=== PATIENT | male | born 1940 | race Caucasian/White ===

== ENCOUNTER 2016-11-01 11:10 | Inpatient (IN) ==
[2016-11-01] MEDS ORDERED: SODIUM CHLORIDE 0.9% 500 ML IV STA (11:53)
--- NOTE | 2016-11-01 11:58 | Emergency Department Note ---
Arrival - Arrival Chief Complaint: Weakness Stated Complaint: fell no use on right side at times,confused ED Nursing Triage Note: fell yesterday. was seen here last week for falls and increased weakness on right side. reports no better since hes been home and unable to use right side and has fallen three more times since last visit. told by dr osei to bring back for re evaluation. Mode of Arrival: Wheelchair Limitations: No Limitations Source: Patient, Significant other, Family, RN Notes Reviewed Time Seen by Provider: 11/01/16 11:46 - History of Present Illness HPI Narrative: Patient is a 76-year-old white male well known to me with a history of Parkinson 's disease followed by Dr. Osei. The patient had multiple falls. He was seen in the emergency department 2 days ago due to falls. The patient was given IV fluids and underwent significant evaluation for other causes of fall or medical weakness and all of these were negative. I discussed with the regarding her ability to care for the patient at home and she wanted to take him home. The patient has since fallen multiple times over the last 48 hours and returns today at the behest of Dr. Osei. Dr. sOei is her primary care provider. The patient is also followed by Dr. Candelario for his Parkinson's. Onset (ago): month(s) Consistency: constant Severity: moderate Allergies/Adverse Reactions: Allergies Allergy/AdvReac Type Severity Reaction Status Date / Time No Known Allergies Allergy Verified 05/21/15 09:21 Home Medications: Home Medications Medication Instructions Recorded Confirmed Type Aspirin [Ecotrin] 325 mg PO BEDTIME 05/20/15 11/01/16 History Dutasteride [Avodart] 0.5 mg PO BEDTIME 05/20/15 11/01/16 History Multivitamin [Multivitamins] 1 tablet PO DAILY 05/20/15 11/01/16 History [place]-3S/Dha/Epa/Fish Oil [Fish 1 tablet PO DAILY 05/20/15 11/01/16 History Oil 1,200 mg Softgel] Alfuzosin HCl [Alfuzosin HCl ER] 10 mg PO BEDTIME 03/15/16 11/01/16 History Carbidopa/Levodopa [Carbidopa-Levo 1 each PO TID 03/15/16 11/01/16 History ER 50-200 Tab] Sennosides [Senna Laxative] 1 tablet PO QID 03/15/16 11/01/16 History Vit C/Vit E AC/Lut/Copper/Zinc 1 each PO BID 03/15/16 11/01/16 History [Preservision Lutein Softgel] Cyanocobalamin (Vitamin B-12) 1,000 mcg PO DAILY 10/30/16 11/01/16 History [Vitamin B-12] Memantine [Namenda] 10 mg PO BID 10/30/16 11/01/16 History Midodrine HCl 5 mg PO TID 10/30/16 11/01/16 History Donepezil [Aricept] 5 mg PO QPM 11/01/16 11/01/16 History Review of System - Review of System 12 point system: reviewed and no additional remarkable complaints except as stated - Review of System Constitutional: Absent: chills, fever Cardiovascular: Absent: chest pain Gastrointestinal: Absent: abdominal pain, nausea, vomiting Skin: Present: lesions Neurological: Present: weakness, confusion, abnormal gait. Absent: headache Medical,Surgical,& Family Hx - Medical History Cardio: History of: Cardiovascular Problems (fluctuating blood pressure) Neurology: History of: Dementia, Parkinson's Disease HEENT: History of: Eye Problem (CATARACTS to both eyes), HEENT Problems (MEMORY PROBLEMS) Rheumatology: History of;: Rheumatoid Arthritis Genitourinary: History of: Bladder Problem, Kidney Stones, Prostate Problems ( BPH) Gastrointestinal: History of: GI Problems (hernia removal 3 weeks ag) Musculoskeletal: History of: Amputation Other: History of: Cancer (skin) - Surgical History Cardiac Surgeries: Patient Denies: Cardiac Catheterization Neurologic Surgeries: Patient denies: Neurologic Surgery Abdominal Surgeries: Surgical HX of: Abdominal Surgery, Hernia Repair ( INCARCERATED RIH) Reproductive Surgeries: Patient denies;: Genitourinary Surgery Orthopedic Surgeries: Surgical HX of;: Orthopedic Surgery (KNEE SCOPE), Total Hip Replacement (RIGHT HIP) - Family History Family History: Reports;: Family Cancer (MOM (lung)), Family Heart Disease (DAD) , Family Hypertension (BROTHER) - Social History Smoking Status: Never smoker Exam Vital Signs: Vital Signs Temperature 97.1 F L 11/01/16 11:22 Pulse Rate 66 11/01/16 11:22 Respiratory Rate 18 11/01/16 11:22 Blood Pressure 125/82 11/01/16 11:22 O2 Sat by Pulse Oximetry 99 11/01/16 11:22 GENERAL: This is a white male chronically ill appearing in no apparent distress. VITAL SIGNS: Reviewed HEENT: Abrasion of the right frontal area. Pupils are equal round react to light. Extraocular movements are intact. Oropharynx is benign with moist mucous membranes. NECK: Neck is soft and supple without tenderness. There are no masses. There is no lymphadenopathy. LUNGS: Lungs are clear to auscultation. Chest rises symmetrically. There is no chest wall tenderness. CV: Heart is regular rate and rhythm without murmurs rubs or gallops. ABDOMEN: Abdomen is soft, nontender to palpation. There are no abdominal abnormal masses palpated. There is no organomegaly. Bowel sounds are present and active. SKIN: Skin is warm and dry. Ecchymosis of the right knee EXTREMITIES: Patient has full range of motion without tenderness. There is no pedal edema. NEUROLOGIC: Awake, alert, mass face ease. Patient is oriented to person and situation. Cranial nerves II through XII are grossly intact. Motor is 4 over 5 in all extremities bilaterally. Course - Consultations Consultation #1: Discussed with Dr. Osei. Patient will be admitted to his service. Initial orders written for him. He will assume patient's care upon arrival to the [facility]. Results - Labs Lab Results: I have reviewed the patients labs - Diagnostic Findings Procedure: CT: image reviewed by me (CT head:) Disposition Clinical Impression: Parkinsons disease, Multiple falls, Parkinson's induced dementia Case discussed with: patient, patient's family Disposition: Still a Patient Condition: Stable Time of Disposition: 12:00
[2016-11-01 12:10] LABS: Basophils % 0.3 % (0.0-0.8); Eosinophils # 0.1 10*3/uL (0.0-0.87); Eosinophils % 0.8 % (0.00-10.9); Hematocrit 38.3 VOL% (42.0-52.0); Hemoglobin 13.1 GM/DL (14.0-18.0); Immature Granulocytes % 0.5 %; Immature Granulocytes Absolute 0.04 #; Lymphocytes # 1.3 10*3/uL (1.4-4.0); Lymphocytes % 16.9 % (21.2-54.2); Mean Corpuscular HGB Conc 34.2 GM/DL (32-36); Mean Corpuscular Hemoglobin 31 PG (27-34); Mean Corpuscular Volume 91.4 FL (87-102); Monocytes # 0.5 10*3/uL (0.11-0.8); Monocytes % 6.9 % (1.7-12.7); Neutrophils # 5.7 10*3/uL (1.4-7.4); Neutrophils % 74.6 % (38.7-73.9); Platelet Count 150 T/CUMM (130-400); Red Blood Count 4.19 MC/CUMM (3.8-5.5); Red Cell Distribution Width 12.8 % (9.3-17.3); White Blood Count 7.6 T/CUMM (4-12)
--- NOTE | 2016-11-01 12:37 | CT Report ---
History: Trauma. Fall Date: 11/01/2016 Study: CT head without contrast Comparison exam: October 30, [address] sections were obtained through the head without IV contrast. This CT exam was performed using one or more the following dose reduction techniques: Automated exposure control, adjustment of the MA and/or KV according to patient size, or use of iterative reconstruction technique. The ventricles are midline in position without evidence of hydrocephalus. There is mild diffuse cerebral atrophy. There is no mass or parenchymal hemorrhage. There is no gross CT evidence of acute cortical stroke. Small rounded low densities compatible with chronic areas of tiny lacunar infarction are noted in the left thalamus and left putamen, similar to the previous study. There is a mild to moderate amount of ill-defined low density in the periventricular white matter without mass effect compatible with changes of small vessel disease. There is no acute abnormality of the calvarium. The partially visualized paranasal sinuses and mastoid air cells are clear. There is mild distal carotid artery calcification bilaterally. Impression: No acute intracranial process. Chronic ischemic changes. Cerebral atrophy as before PROCEDURE INTERPRETED AT [facility] DEPARTMENT OF RADIOLOGY Final Report Signed by: Dr. Yumi Garcia
[2016-11-01 12:40] LABS: PT Patient Result 10.9 SECS; Partial Thromboplastin Time 28.7 SECS (0-40)
[2016-11-01 12:41] LABS: Albumin 3.8 G/DL (3.4-5.0); Bilirubin,Total 0.5 MG/DL (0.2-1.0); Calcium 9.1 MG/DL (8.5-10.1); Osmolality,Calculated 286.1 MOS/KG (273-304); Potassium 3.9 MMOL/L (3.5-5.1); Total Protein 6.8 G/DL (6.4-8.3)
--- NOTE | 2016-11-01 12:46 | XRay Report ---
History: Fall Date: 11/01/2016 Study: Chest x-ray AP portable Comparison exam: 03/18/2016 The cardiac silhouette is mildly prominent. There is no mediastinal mass. There is mild tortuosity and ectasia of the thoracic aorta. The pulmonary vasculature is not engorged. There is no pneumothorax or gross pleural effusion. There is some bronchovascular crowding in the lung bases. There is no definite acute osseous abnormality. There is mild thoracic spondylosis and suspected osteopenia. Impression: Shallow inspiration. Mild cardiomegaly. No definite acute process PROCEDURE INTERPRETED AT [facility] DEPARTMENT OF RADIOLOGY Final Report Signed by: Dr. Yumi Garcia
[2016-11-01 13:03] LABS: Apearance,Urine CLEAR (Clear); Bacteria,Urine Occasional /HPF (Few); Bilirubin,Urine Negative (Negative); Blood, Urine Negative (Negative); Glucose,Urine (UA) Negative (Negative); Ketones,Urine 5 mg/dL (Negative); Mucus,Urine Occasional /LPF (Occasional); Nitrite,Urine Negative (Negative); Protein,Urine Negative; RBC,Urine <1 /HPF (0-4); Urine Color Yellow (Yellow); Urine Specific Gravity 1.016 (1.001-1.035); Urine Urobilinogen < 2.0 EU/DL (0.2-1.0); WBC,Urine 2 /HPF (0-6)
[2016-11-01] MEDS ORDERED: ONDANSETRON 4 MG/2 ML VIAL IV PRN (13:37)
[2016-11-01] MEDS ORDERED: ACETAMINOPHEN 325 MG TABLET PO PRN (13:37)
--- NOTE | 2016-11-01 14:45 | Neurology Consult Note ---
History of Present Illness History of present illness: Mr. Browne is a 76 year old right-handed white gentleman with past medical history significant for Parkinson disease admitted the hospital with frequent falls. Patient's Parkinson's has gotten worse and quite decompensated. He is having what sounds like frequent freezing spells. Frequently he has episodes where he would just not be able to walk at all. He will drag his leg and then fall eventually. No major injuries reported. He has been taking Sinemet at home but somehow it was not continued here. Son reported that he has fallen several times in the last couple of weeks. No speech difficulties or swallowing problems reported. Is still able to perform ADLs to a certain extent however requiring more and more help. Home Medications Medication Instructions Recorded Confirmed Type Aspirin [Ecotrin] 325 mg PO BEDTIME 05/20/15 11/01/16 History Dutasteride [Avodart] 0.5 mg PO BEDTIME 05/20/15 11/01/16 History Multivitamin [Multivitamins] 1 tablet PO DAILY 05/20/15 11/01/16 History [place]-3S/Dha/Epa/Fish Oil [Fish 1 tablet PO DAILY 05/20/15 11/01/16 History Oil 1,200 mg Softgel] Alfuzosin HCl [Alfuzosin HCl ER] 10 mg PO BEDTIME 03/15/16 11/01/16 History Carbidopa/Levodopa [Carbidopa-Levo 1 each PO TID 03/15/16 11/01/16 History ER 50-200 Tab] Sennosides [Senna Laxative] 1 tablet PO QID 03/15/16 11/01/16 History Vit C/Vit E AC/Lut/Copper/Zinc 1 each PO BID 03/15/16 11/01/16 History [Preservision Lutein Softgel] Cyanocobalamin (Vitamin B-12) 1,000 mcg PO DAILY 10/30/16 11/01/16 History [Vitamin B-12] Memantine [Namenda] 10 mg PO BID 10/30/16 11/01/16 History Midodrine HCl 5 mg PO TID 10/30/16 11/01/16 History Donepezil [Aricept] 5 mg PO QPM 11/01/16 11/01/16 History Allergies Allergy/AdvReac Type Severity Reaction Status Date / Time No Known Allergies Allergy Verified 01/06/16 09:21 12 point system: reviewed and no additional remarkable complaints except as stated Medical,Surgical,& Family Hx - Medical History Cardio: History of: Hypertension, Cardiovascular Problems (fluctuating blood pressure) Neurology: History of: Dementia, Parkinson's Disease HEENT: History of: Eye Problem (CATARACTS to both eyes), HEENT Problems (MEMORY PROBLEMS) Rheumatology: History of;: Rheumatoid Arthritis Genitourinary: History of: Bladder Problem, Kidney Stones, Prostate Problems ( BPH) Gastrointestinal: History of: GI Problems (hernia removal 3 weeks ag) Musculoskeletal: History of: Amputation Other: History of: Cancer (skin) - Surgical History Cardiac Surgeries: Patient Denies: Cardiac Catheterization Neurologic Surgeries: Patient denies: Neurologic Surgery Abdominal Surgeries: Surgical HX of: Abdominal Surgery, Hernia Repair ( INCARCERATED RIH) Reproductive Surgeries: Patient denies;: Genitourinary Surgery Orthopedic Surgeries: Surgical HX of;: Orthopedic Surgery (KNEE SCOPE), Total Hip Replacement (RIGHT HIP) - Family History Family History: Reports;: Family Cancer (MOM (lung)), Family Heart Disease (DAD) , Family Hypertension (BROTHER) - Social History Smoking Status: Never smoker Frequency of Alcohol Use: None Type of Drug Use: None Exam - Constitutional Vitals: Period Temp Pulse Resp BP Sys/Wilkerson Pulse Ox Last 24 Hr 97.1 F-98 F 58-75 13-18 115-192/74-112 97-100 Exam: GENERAL: Patient is in no acute distress. NECK: Neck is supple. There is no JVD. No carotid bruits present. No thyroid masses. CVS: First and second heart sounds are normal. There is no S3 present. Regular rate and rhythm. RESPIRATORY: Lungs are clear to auscultation without any rales or rhonchi. ABDOMEN: Soft and non-tender. Bowel sounds are present. There is no hepatosplenomegaly. EXT: There is no palpable edema. Peripheral pulses are present. Skin: No rashes Central Nervous system: General: Alert, awake Speech: Non-fluent Comprehension: Fair Facial expressions: Masklike Cranial Nerves: CN1/Olfactory: Normal CN II/ Optic: Normal, Visual Duron unreliable CN III, and : SHON & EOMI CN V: Normal & intact CN VII: face is symmetric CNVIII: Normal CN XI/X/XI/XII: Intact and Normal Motor: Bilateral cogwheel rigidity and bradykinesia Strength is symmetrical Sensory: Unreliable Reflexes: 1+ and symmetrical Cerebellar function: Marked dysmetric finger to nose and heel to napier testing bilaterally. Toes: Equivocal Gait: Not tested at this time Results - Labs CBC & BMP: 11/01/16 12:02 11/01/16 12:02 Assessment and Plan (1) Parkinsons disease Status: Acute Assessment and plan: Change Sinemet CR to 50/200 mg 1 tablet 4 times Consult TMR Current Visit: No (2) Dementia Status: Acute Assessment and plan: Continue Aricept and Namenda at the same dose Current Visit: No Qualifiers: Dementia type: Parkinson's disease (3) Orthostatic hypotension Status: Acute Assessment and plan: Continue midodrine Check orthostatic vitals q12 Current Visit: No
[2016-11-01] MEDS ORDERED: CARBIDOPA/LEVODOPA CR 50-200 MG TABLET PO SCH (15:00)
--- NOTE | 2016-11-01 16:03 | Internal Med History&Physical ---
Assessment and Plan (1) Multiple falls Status: Acute Assessment and plan: 76-year-old male admitted to acute care * Multiple falls. Probably multifactorial secondary to decompensating Parkinson 's disease and or orthostatic hypotension. Patient will be evaluated for any metabolic causes. Check MRI brain * Decompensated Parkinson's disease. Will consult Dr. Candelario. * Orthostatic hypotension secondary to autonomic dysfunction. Patient is on midodrine * BPH. Continue current treatment * Dementia. Medications were recently changed because of high cost of Exelon patch * Discussed in detail with patient's son who is present. He will benefit from either rehab or swing bed placement Current Visit: Yes (2) Parkinsons disease Status: Acute Current Visit: Yes (3) Dementia Status: Acute Current Visit: No Qualifiers: Dementia type: Parkinson's disease (4) Dysautonomia orthostatic hypotension syndrome Status: Acute Current Visit: No (5) Hypertension Status: Acute Current Visit: No History of Present Illness Chief complaint: Multiple falls and weakness History of present illness: Mr. Browne is a 76 year old male with history of multiple medical problems including Parkinson's disease, advanced dementia, orthostatic hypotension, BPH and multiple falls. He was brought to the emergency room by family because of multiple falls and increased weakness on the right side. Patient was in emergency room a few days ago and was evaluated with CT brain and sent home. He was recommended an admission but the family decided to take him home. He was recently taken off Exelon patch because of the high cost and switch to Aricept. Patient denies any complaints. No chest pain or shortness of breath. No nausea vomiting or diarrhea. No fever or chills. Patient is supposed to use a walker and he uses it when he remembers about it Home Medications Medication Instructions Recorded Confirmed Type Aspirin [Ecotrin] 325 mg PO BEDTIME 05/20/15 11/01/16 History Dutasteride [Avodart] 0.5 mg PO BEDTIME 05/20/15 11/01/16 History Multivitamin [Multivitamins] 1 tablet PO DAILY 05/20/15 11/01/16 History [place]-3S/Dha/Epa/Fish Oil [Fish 1 tablet PO DAILY 05/20/15 11/01/16 History Oil 1,200 mg Softgel] Alfuzosin HCl [Alfuzosin HCl ER] 10 mg PO BEDTIME 03/15/16 11/01/16 History Carbidopa/Levodopa [Carbidopa-Levo 1 each PO TID 03/15/16 11/01/16 History ER 50-200 Tab] Sennosides [Senna Laxative] 1 tablet PO QID 03/15/16 11/01/16 History Vit C/Vit E AC/Lut/Copper/Zinc 1 each PO BID 03/15/16 11/01/16 History [Preservision Lutein Softgel] Cyanocobalamin (Vitamin B-12) 1,000 mcg PO DAILY 10/30/16 11/01/16 History [Vitamin B-12] Memantine [Namenda] 10 mg PO BID 10/30/16 11/01/16 History Midodrine HCl 5 mg PO TID 10/30/16 11/01/16 History Donepezil [Aricept] 5 mg PO QPM 11/01/16 11/01/16 History Allergies Allergy/AdvReac Type Severity Reaction Status Date / Time No Known Allergies Allergy Verified 05/21/15 09:21 Medical,Surgical,& Family Hx - Medical History Cardio: History of: Hypertension, Cardiovascular Problems (Severe orthostatic hypotension) Neurology: History of: Dementia, Parkinson's Disease HEENT: History of: Eye Problem (CATARACTS to both eyes), HEENT Problems (MEMORY PROBLEMS) Genitourinary: History of: Bladder Problem, Kidney Stones, Prostate Problems ( BPH) Gastrointestinal: History of: GI Problems (hernia removal 3 weeks ag) Musculoskeletal: History of: Amputation Other: History of: Cancer (skin) - Surgical History Cardiac Surgeries: Patient Denies: Cardiac Catheterization Neurologic Surgeries: Patient denies: Neurologic Surgery Abdominal Surgeries: Surgical HX of: Abdominal Surgery, Hernia Repair ( INCARCERATED RIH) Reproductive Surgeries: Patient denies;: Genitourinary Surgery Orthopedic Surgeries: Surgical HX of;: Orthopedic Surgery (KNEE SCOPE), Total Hip Replacement (RIGHT HIP) - Family History Family History: Reports;: Family Cancer (MOM (lung)), Family Heart Disease (DAD) , Family Hypertension (BROTHER) - Social History Smoking Status: Never smoker Frequency of Alcohol Use: None Type of Drug Use: None Marital Status: Lives With:: Spouse Functional capacity: uses cane/walker ROS unobtainable: due to mental status Exam - Constitutional Vitals: Period Temp Pulse Resp BP Sys/Wilkerson Pulse Ox Last 24 Hr 97.1 F-98 F 58-75 13-18 115-192/74-112 97-100 Exam: Examination: GENERAL: NAD. Masklike face HEENT: PERRLA. EOMI. Mucous membranes are moist. NECK: Neck is supple. No JVD. No carotid bruit. No thyromegaly. CVS: Regular rate and rhythm. S1 and S2 are normal. Systolic ejection murmur at left upper sternal border RESPIRATORY: Lungs are clear. No rales or rhonchi. ABDOMEN: Soft and nontender. Bowel sounds are present. No hepatosplenomegaly. EXT: No edema. Peripheral pulses are present. 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 Cranial nerves II through XII are grossly intact. Motor strength is 4/5. Bilateral cog wheel rigidity SKIN: Warm and dry. There is abrasion present in the right frontal area. Ecchymosis of the right knee MSK: No obvious deformity. Results - Labs CBC & BMP: 11/01/16 12:02 11/01/16 12:02 Lab Results: I have reviewed the past 24 hour labs Quality Measures - Stroke Symptom Onset Unknown: No
[2016-11-01] MEDS: SENNA 8.6 MG TABLET PO SCH ×2 (17:25→20:54)
[2016-11-01] MEDS: CARBIDOPA/LEVODOPA CR 50-200 MG TABLET PO SCH ×2 (17:25→20:55)
[2016-11-01] MEDS: MIDODRINE 5 MG TABLET PO SCH ×2 (17:38→20:54)
[2016-11-01] MEDS: SODIUM CHLORIDE 0.9% 1,000 ML IV SCH ×2 (19:42→20:47)
[2016-11-01] MEDS: ASPIRIN EC 325 MG TABLET PO SCH (20:53)
[2016-11-01] MEDS: MULTIVITAMIN (OCUVITE) TABLET PO SCH (20:53)
[2016-11-01] MEDS: DUTASTERIDE 0.5 MG CAPSULE PO SCH (20:53)
[2016-11-01] MEDS: DONEPEZIL 5 MG TABLET PO SCH (20:54)
[2016-11-01] MEDS: ALFUZOSIN 10 MG TABLET PO SCH (20:55)
[2016-11-01] MEDS: MEMANTINE 10 MG TABLET PO SCH (20:55)
[2016-11-01] MEDS: DOCUSATE SODIUM 100 MG CAPSULE PO SCH (21:07)
[2016-11-02] MEDS ORDERED: hydrALAZINE 20 MG/1 ML VIAL IV PRN (04:12)
[2016-11-02] MEDS: SODIUM CHLORIDE 0.9% 1,000 ML IV SCH ×2 (04:26→04:45)
[2016-11-02] MEDS ORDERED: cloNIDine 0.1 MG TABLET PO PRN (07:47)
--- NOTE | 2016-11-02 08:13 | Internal Med Progress Note ---
Assessment and Plan (1) Multiple falls Status: Acute Assessment and plan: 76-year-old male admitted to acute care * Multiple falls. Patient unable to do MRI. Will also put a monitor on the patient for at least 24 hours to evaluate for any arrhythmias. If workup okay he can go to [facility] probably in the morning * Decompensated Parkinson's disease. Will consult Dr. Candelario. * Orthostatic hypotension secondary to autonomic dysfunction. Patient is on midodrine * BPH. Continue current treatment * Dementia. Medications were recently changed because of high cost of Exelon patch * Blood pressure is high today. Will add Norvasc. He has taken it before. He is at high fall risk. His is staying with him * Discussed with patient and his Current Visit: Yes (2) Parkinsons disease Status: Acute Current Visit: Yes (3) Dementia Status: Acute Current Visit: No Qualifiers: Dementia type: Parkinson's disease (4) Dysautonomia orthostatic hypotension syndrome Status: Acute Current Visit: No (5) Hypertension Status: Acute Current Visit: No Internal Medicine - PN: Subj Interval history: Patient did not had a good night. His blood pressure was high. His keeps on thinking that it is Aricept which is causing him to fall. It was changed recently because of high cost of Exelon patches Exam (Progress Note) - Constitutional Vitals: Period Temp Pulse Resp BP Sys/Wilkerson Pulse Ox Last 24 Hr 97.1 F-99.5 F 58-75 13-20 115-204/70-122 96-100 Exam: Examination: GENERAL: NAD. Masklike face HEENT: PERRLA. EOMI. NECK: Neck is supple. CVS: Regular rate and rhythm. S1 and S2 are normal. Systolic ejection murmur at left upper sternal border RESPIRATORY: Lungs are clear. No rales or rhonchi. ABDOMEN: Soft and nontender. Bowel sounds are present. No hepatosplenomegaly. EXT: No edema. Peripheral pulses are present. 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 Cranial nerves II through XII are grossly intact. Motor strength is 4/5. Bilateral cog wheel rigidity SKIN: Warm and dry. There is abrasion present in the right frontal area. Ecchymosis of the right knee. Ecchymosis on the right elbow MSK: No obvious deformity. Results - Labs CBC & BMP: 11/01/16 12:02 11/01/16 12:02 Lab Results: I have reviewed the past 24 hour labs Quality Measures - Stroke Symptom Onset Unknown: No
[2016-11-02] MEDS: PANTOPRAZOLE 40 MG TABLET PO SCH (09:37)
[2016-11-02] MEDS: OMEGA 3 ACID ETHYL ESTERS 1 GM CAPSULE PO SCH (09:37)
[2016-11-02] MEDS: CYANOCOBALAMIN 500 MCG TABLET PO SCH (09:37)
[2016-11-02] MEDS: MULTIVITAMIN (OCUVITE) TABLET PO SCH ×2 (09:37→20:27)
[2016-11-02] MEDS: MULTIVITAMIN (CENTRUM) TABLET PO SCH (09:38)
[2016-11-02] MEDS: DOCUSATE SODIUM 100 MG CAPSULE PO SCH ×2 (09:38→20:27)
[2016-11-02] MEDS: CARBIDOPA/LEVODOPA CR 50-200 MG TABLET PO SCH ×4 (09:38→20:27)
[2016-11-02] MEDS: MEMANTINE 10 MG TABLET PO SCH ×2 (09:38→20:27)
[2016-11-02] MEDS: SENNA 8.6 MG TABLET PO SCH ×4 (09:38→20:28)
[2016-11-02] MEDS: MIDODRINE 5 MG TABLET PO SCH ×3 (09:41→20:29)
[2016-11-02] MEDS: amLODIPine 5 MG TABLET PO SCH (09:44)
--- NOTE | 2016-11-02 14:06 | Neurology Progress Note ---
Neurology - PN : Subjective Interval history: Mr. Browne seems to be doing much better today. He is more alert and awake and to himself. Walk to the door this morning with physical therapy however he is very unsteady. Exam (Progress Note) - Constitutional Vitals: Period Temp Pulse Resp BP Sys/Wilkerson Pulse Ox Last 24 Hr 97.9 F-99.7 F 63-80 16-20 120-204/70-122 95-99 Exam: GENERAL: Patient is in no acute distress. NECK: Neck is supple. There is no JVD. No carotid bruits present. No thyroid masses. CVS: First and second heart sounds are normal. There is no S3 present. Regular rate and rhythm. RESPIRATORY: Lungs are clear to auscultation without any rales or rhonchi. ABDOMEN: Soft and non-tender. Bowel sounds are present. There is no hepatosplenomegaly. EXT: There is no palpable edema. Peripheral pulses are present. Skin: No rashes Central Nervous system: General: Alert, awake Speech: Non-fluent Comprehension: Fair Facial expressions: Masklike Cranial Nerves: CN1/Olfactory: Normal CN II/ Optic: Normal, Visual Duron unreliable CN III, and : SHON & EOMI CN V: Normal & intact CN VII: face is symmetric CNVIII: Normal CN XI/X/XI/XII: Intact and Normal Motor: Bilateral cogwheel rigidity and bradykinesia Strength is symmetrical Sensory: Unreliable Reflexes: 1+ and symmetrical Cerebellar function: Marked dysmetric finger to nose and heel to napire testing bilaterally. Toes: Equivocal Gait: Walks this morning with physical therapy Results - Labs CBC & BMP: 11/01/16 12:02 11/01/16 12:02 Assessment and Plan (1) Parkinsons disease Status: Acute Assessment and plan: Continue Sinemet CR to 50/200 mg 1 tablet 4 times For TMR placement Current Visit: No (2) Dementia Status: Acute Assessment and plan: Continue Aricept and Namenda at the same dose Current Visit: No Qualifiers: Dementia type: Parkinson's disease (3) Orthostatic hypotension Status: Acute Assessment and plan: Continue midodrine Patient is having some supine hypertension but no orthostatic vitals documented Current Visit: No Quality Measures - Stroke Symptom Onset Unknown: No
[2016-11-02] MEDS: DONEPEZIL 5 MG TABLET PO SCH (18:28)
[2016-11-02] MEDS ORDERED: LORazepam 2 MG/1 ML VIAL IV ONE (18:48)
[2016-11-02] MEDS: ALFUZOSIN 10 MG TABLET PO SCH (20:27)
[2016-11-02] MEDS: DUTASTERIDE 0.5 MG CAPSULE PO SCH (20:27)
[2016-11-02] MEDS: ASPIRIN EC 325 MG TABLET PO SCH (20:28)
[2016-11-02] MEDS ORDERED: ZIPRASIDONE 20 MG/1 ML VIAL IM PRN (21:38)
--- NOTE | 2016-11-03 10:07 | Discharge Summary ---
Hospital Course - Hospital Course Hospital Course: Patient is 76-year-old male with history of Parkinson's disease, advanced dementia, orthostatic hypertension, BPH and multiple falls. He was admitted with acute decompensation of his Parkinson's disease and multiple falls sustained at home. She was admitted to acute care and was seen by neurology. He was unable to have MRI done because he could not stay still. Patient has been quite agitated during the last 2 nights and required Geodon. His blood pressure is quite high when he is lying or becomes agitated. He has been started on Norvasc. Patient does have autonomic dysfunction and has severe drops in his blood pressure when he stands up. He has not been using his walker. He will benefit from inpatient rehab or to swing bed. Plan is to initially send him to inpatient rehab and see if he is able to get better. I had long discussions with patient's and son about possible [facility] placement or a caregiver at home most of the time to help relieve the burden on his . I will follow him at [facility] rehab Diagnosis - Discharge Diagnosis (1) Multiple falls Status: Acute (2) Parkinsons disease Status: Acute (3) Dementia Status: Acute (4) Dysautonomia orthostatic hypotension syndrome Status: Acute (5) Hypertension Status: Acute Discharge Plan - Discharge Data Disposition: Disch/Xfer- Rehab Fac Condition at Discharge: Stable Discharge Diet: advance to your usual diet Activity: as per physical therapy - Discharge Medications New cloNIDine TAB [Catapres Tab] 0.1 mg PO Q6H PRN tablet PRN Reason: Hypertension Ziprasidone Inj [Geodon Inj] 10 mg IM Q6H PRN vial PRN Reason: Agitation amLODIPine [Norvasc] 5 mg PO DAILY tablet Carbidopa/Levodopa Cr 50-200 [Sinemet Cr 50-200] 1 tablet PO QID tablet Continue Aspirin [Ecotrin] 325 mg PO BEDTIME Dutasteride [Avodart] 0.5 mg PO BEDTIME Multivitamin [Multivitamins] 1 tablet PO DAILY [place]-3S/Dha/Epa/Fish Oil [Fish Oil 1,200 mg Softgel] 1 tablet PO DAILY Alfuzosin HCl [Alfuzosin HCl ER] 10 mg PO BEDTIME Vit C/Vit E AC/Lut/Copper/Zinc [Preservision Lutein Softgel] 1 each PO BID Sennosides [Senna Laxative] 1 tablet PO QID Midodrine HCl 5 mg PO TID Memantine [Namenda] 10 mg PO BID Cyanocobalamin (Vitamin B-12) [Vitamin B-12] 1,000 mcg PO DAILY Donepezil [Aricept] 5 mg PO QPM Discontinued Carbidopa/Levodopa [Carbidopa-Levo ER 50-200 Tab] 1 each PO TID - Follow Up or Referral - Forms/Instructions Exam - Constitutional Vitals: Period Temp Pulse Resp BP Sys/Wilkerson Pulse Ox Last 24 Hr 96.8 F-99.7 F 65-83 16-20 150-192/72-109 95-99 Exam: Examination: GENERAL: NAD. Masklike face NECK: Neck is supple. CVS: Regular rate and rhythm. S1 and S2 are normal. Systolic ejection murmur at left upper sternal border RESPIRATORY: Lungs are clear. ABDOMEN: Soft and nontender. EXT: No edema. 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 SKIN: Warm and dry. There is abrasion present in the right frontal area. Ecchymosis of the right knee. Ecchymosis on the right elbow Discharge Results Procedures and tests throughout hospitalization: Pending Orders 11/01/16 14:46 MR head/brain wo con Stat DS: Provider Date of admission: 11/01/16 11:54 Primary care physician: Kelton Busch MD Attending physician on admission: Lane Shelton MD Consults: 11/01/16 13:37 Consult to Case Mgmt/Social Srvs [CONS] Routine Reason for Case Mgmt/Social Srvs: Discharge Planning Consult to Physical Therapy [CONS] Routine Reason for Physical Therapy: Weakness Start Therapy: Today Consult to Physician [CONS] Routine Comment: parkinsons Consulting Provider: Gustavo Candelario Person Notified: AWARE Date Notified: 11/01/16 Time Notified: 14:27 11/01/16 14:50 Consult to Case Mgmt/Social Srvs [CONS] Routine Reason for Case Mgmt/Social Srvs: Rehab Discharging clinician: Lane Shelton MD
[2016-11-03] MEDS: CYANOCOBALAMIN 500 MCG TABLET PO SCH (10:08)
[2016-11-03] MEDS: CARBIDOPA/LEVODOPA CR 50-200 MG TABLET PO SCH ×2 (10:08→16:04)
[2016-11-03] MEDS: SENNA 8.6 MG TABLET PO SCH ×2 (10:08→16:03)
[2016-11-03] MEDS: MIDODRINE 5 MG TABLET PO SCH (10:08)
[2016-11-03] MEDS: MULTIVITAMIN (OCUVITE) TABLET PO SCH (10:08)
[2016-11-03] MEDS: MULTIVITAMIN (CENTRUM) TABLET PO SCH (10:08)
[2016-11-03] MEDS: PANTOPRAZOLE 40 MG TABLET PO SCH (10:09)
[2016-11-03] MEDS: amLODIPine 5 MG TABLET PO SCH (10:09)
[2016-11-03] MEDS: MEMANTINE 10 MG TABLET PO SCH (10:09)
[2016-11-03] MEDS: OMEGA 3 ACID ETHYL ESTERS 1 GM CAPSULE PO SCH (10:09)
[2016-11-03] MEDS: DOCUSATE SODIUM 100 MG CAPSULE PO SCH (10:09)
[2016-11-03] MEDS ORDERED: hydrALAZINE 20 MG/1 ML VIAL IV PRN (11:33)
[2016-11-03 11:58] VITALS: BP 191/67
== END 2016-11-03 13:01 | DRG 57 ==
LOC: N.ED 11:10 → N.EDINP 11:54 → N.5E 13:35
PROVIDERS: ADMIT Internal Medicine; ATTEND Internal Medicine